=== PATIENT | male | born 1995 | race Caucasian/White ===

== ENCOUNTER 2017-02-02 11:34 | Day surgery (SDC) | payer BC ==
[~2017-02-02] VITALS: Ht 182.9 cm; Wt 71.4 kg
--- NOTE | ~2017-02-02 | ER ---
PATIENT'S NAME: ASMITA [facility] AGE: 21 Y [address] ROOM: [place] [address] [place] [facility] [facility] [place]: 02/02/2017 ER/Outpatient Report DISCHARGE DATE: FAMILY PHYSICIAN: PHYSICIAN, UNKNOWN ATTENDING PHYSICIAN: Nirmal Orta Time of Arrival: 1134 hours. Time of Evaluation/Seen: 1140 hours. IDENTIFICATION: A 21-year-old male. CHIEF COMPLAINT: Abdominal pain. HISTORY OF PRESENT ILLNESS: The patient states around 8:00 a.m. he developed mid abdominal pain. No radiation, associated with nausea and vomiting. No diarrhea. No constipation, and he had a normal bowel movement this morning. No blood in his stools. No dark, tarry, or black stools. No fever or chills. He has had a history of intermittent abdominal pain in the past with negative workup, but has never had any imaging, last flare was 2 years ago. He had a severe episode of constipation in 2nd grade and then again in 9th grade was troubled with intermittent abdominal pain. ALLERGIES: NO KNOWN DRUG ALLERGIES. CURRENT MEDICATIONS: None. MEDICAL PROBLEMS: None. PAST SURGICAL HISTORY: No prior surgeries. He was hospitalized for severe constipation as a child, but no other hospitalizations. SOCIAL HISTORY: The patient lives here in [place]. 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 He does have a significant other. Tobacco use, denies. Alcohol use, denies. Drug use, denies. REVIEW OF SYSTEMS: All systems were reviewed and negative other than what is noted in the HPI. PATIENT'S NAME: MATTEOZEESHAN [facility] AGE: 21 Y [address] ROOM: [place] [address] [place] [facility] [place] DATE: 02/02/2017 ER/Outpatient Report DISCHARGE DATE: FAMILY PHYSICIAN: PHYSICIAN, UNKNOWN ATTENDING PHYSICIAN: Nirmal Orta PHYSICAL EXAMINATION: VITAL SIGNS: Weight 70.5 kg. Blood pressure 154/105, pulse 64, respiratory rate is 20, temperature 96.0, and sats 96%. Recheck blood pressure is 131/90. GENERAL: A 21-year-old male in obvious distress with 10/10 pain and nausea and vomiting. HEENT: Head; normocephalic and atraumatic. Ears; TMs not visualized. Eyes; pupils equal and reactive to light and accommodation. Extraocular movements intact. Nose; mucosa pink. No lesions or drainage. Mouth; no lesions. Pharynx, benign. NECK: Supple. No lymphadenopathy. No nuchal rigidity. LUNGS: Clear to auscultation. HEART: Regular rate and rhythm. ABDOMEN: Bowel sounds present. Soft, nondistended, and tender to palpation in the mid abdomen with some voluntary guarding. No rebound. The patient seems to be more tender in the right abdomen, but when you ask him where it hurts, he points more to just above his umbilicus. EMERGENCY DEPARTMENT COURSE: An IV was initiated. Zofran 4 mg was given, and fentanyl 50 mcg, with no improvement. Both were repeated. He continued to have significant nausea. Phenergan 50 mg IM was given with some improvement with the pain level down to 5. UA is negative. Sodium 141, potassium 3.9, chloride 107, CO2 of 28, BUN 17, creatinine 1.1, and blood sugar 110. Liver enzymes normal. Amylase 49, lipase 64. Hemoglobin 19.1, hematocrit 53.0, platelets 261,000, and white count 12.4 with 80% neutrophils. CT scan of the abdomen and pelvis with IV contrast, acute uncomplicated appendicitis per Dr. Oliveira, radiologist. IMPRESSION: Acute appendicitis. PLAN: Dr. Orta was consulted from General Surgery and evaluated the patient in the emergency room. Plan for a laparoscopic appendectomy. WILLIAM RAMOS MD CAR/modl /[id number] d: 02/02/[id number] t: 02/10/172040, OUTPATIENT REPORT
--- NOTE | ~2017-02-02 | OR ---
PATIENT'S NAME: CARMEN [facility] AGE: 21 Y [address] ROOM: [address] [address] [place]: [facility] [place] ADMIT DATE: 02/02/2017 OR/Procedure Report DISCHARGE DATE: FAMILY PHYSICIAN: PHYSICIAN, UNKNOWN ATTENDING PHYSICIAN: Nirmal Orta SURGEON: Nirmal Orta MD RADIOGRAPHY TECHNICIAN: Trice Parks PA-C. DATE OF PROCEDURE: 02/02/2017 PREOPERATIVE DIAGNOSIS: Acute appendicitis. POSTOPERATIVE DIAGNOSIS: Acute appendicitis. PROCEDURE: Laparoscopic appendectomy. FINDINGS: The patient had acutely inflamed appendix. No perforation was present. ESTIMATED BLOOD LOSS: Less than 20 mL. COMPLICATIONS: None. INDICATIONS: The patient is a 21-year-old male, who presented with abdominal pain. He had CT evidence of appendicitis. We discussed appendectomy with the patient. The risks, benefits, and alternatives, and he elected to proceed. DESCRIPTION OF PROCEDURE: The patient was taken to the operating room. He was placed supine, given IV sedation, subsequently intubated. Abdomen was prepped with ChloraPrep and sterilely draped. Local anesthetic was infiltrated just inferior to the umbilicus. A transverse incision was created. The abdomen was elevated. Veress needle was inserted. Pneumoperitoneum was induced. Following this, a 5 mm trocar was inserted followed by insertion of the camera. There was no injury from initial trocar placement. Two more trocars were positioned, a 5 mm and a 12 mm trocars, these were both inserted in the left lower quadrant. A skin overlying the peritoneum was first anesthetized prior to making the incisions. Both these trocars were inserted under direct visualization. The appendix was identified in the right lower quadrant. It was consistent with appendicitis. It was grasped and elevated. A window was created at the base of the appendix. Once a window was created, a laparoscopic stapler was placed across the base of the appendix and fired. A second staple load was placed across the mesoappendix and fired. Appendix was then placed in an EndoCatch bag and brought out through the left lower quadrant port site. The operative field was inspected and it appeared hemostatic. The staple lines appeared intact. The area was copiously irrigated. Fluid was removed. The pneumoperitoneum was then PATIENT'S NAME: ASMITA [facility] AGE: 21 Y [address] ROOM: [address] [address] LOCATION: [facility] [place] ADMIT DATE: 02/02/2017 OR/Procedure Report DISCHARGE DATE: FAMILY PHYSICIAN: PHYSICIAN, UNKNOWN ATTENDING PHYSICIAN: Nirmal Orta. The trocars were removed. The trocar sites appeared hemostatic. The fascia of the 12 mm port site was approximated with 0 Vicryl suture followed by skin closure of all 3 port sites with 4-0 Monocryl suture. Steri- Strips and sterile dressings were placed. The patient was extubated and sent to recovery in good condition. Trice Parks was necessary for necessary retraction and visualization throughout the entire case. MD MIKAELA MCMAHON/timmy /[id number] P d: 02/02/17 2244 t: 02/11/17 1334, OPERATIVE SUMMARY
--- NOTE | ~2017-02-02 | HP ---
PATIENT'S NAME: ASMITA [facility] AGE: 21 Y [address] ROOM: [place] [address] [place] [facility] [place]: 02/02/2017 History & Physical DISCHARGE DATE: FAMILY PHYSICIAN: PHYSICIAN, UNKNOWN ATTENDING PHYSICIAN: Nirmal Orta DATE OF SERVICE: CHIEF COMPLAINT: Abdominal pain. HISTORY OF PRESENT ILLNESS: The patient is a 21-year-old male who said at 8 a.m. this morning he began having abdominal pain, this got progressively worse. He said in high school he had some history of having intermittent abdominal pain without any clear etiology. He said normally after having a bowel movement his pain will go away. He had a normal bowel movement this morning, the pain persisted and then got progressively worse, he then vomited. He says now when he moves he feels nauseated because the pain gets severe. Never had pain as severe as this in the past. No history of Crohn disease or ulcerative colitis. He was seen in the emergency room where he was evaluated and was found to have a leukocytosis with significant abdominal pain. Because of this, a CT scan was performed, the CT revealed evidence of appendicitis. He has also had no fevers or chills. CURRENT MEDICATIONS: None. ALLERGIES: NONE. PREVIOUS SURGERIES: None. SOCIAL HISTORY: He does not smoke. He does drink alcohol on occasion. He is not . FAMILY HISTORY: He had a grandmother with cancer, does not know what type. No other family history of cancer. Denies heart disease or diabetes. REVIEW OF SYSTEMS: Denies headache or vision changes. He has no chest pain or shortness of breath. He has had no melena or hematochezia. No hematuria or dysuria. No diabetes. No hyperthyroidism or hypothyroidism. Further review of systems is PATIENT'S NAME: MATTEOZEESHAN [facility] AGE: 21 Y [address] ROOM: [place] [address] [place] [facility] [place]: 02/02/2017 History & Physical DISCHARGE DATE: FAMILY PHYSICIAN: PHYSICIAN, UNKNOWN ATTENDING PHYSICIAN: Nirmal Orta negative. PHYSICAL EXAMINATION: GENERAL: He is an uncomfortable-appearing 21-year-old male. HEENT: Head is normocephalic, atraumatic. Eyes are anicteric. NECK: Without lymphadenopathy. HEART: Regular rate and rhythm. LUNGS: Clear to auscultation bilaterally. ABDOMEN: Diffusely tender, worse in the right lower quadrant. He demonstrates voluntary guarding. EXTREMITIES: Warm. No edema. NEUROLOGICAL: Gross motor is intact. ASSESSMENT: CT evidence of acute appendicitis. PLAN: Discussed the findings with Manan. We discussed surgery, also discussed antibiotic treatment, but ultimately recommended surgery. Discussed risks of surgery, which include but are not limited to, bleeding, infection, staple line leak, abscess formation, injury to other viscera. He understands the risks of surgery and would like to proceed. MD MIKAELA MCMAHON/timmy /[id number] D: [id number] T: [id number] HISTORY & PHYSICAL
[2017-02-02 11:57] LABS: BASOPHIL % 0.3 %; EOSINOPHIL # 0.1 K/uL (0.0-0.5); EOSINOPHIL % 0.4 %; HEMOGLOBIN 19.1 g/dL (12.0-17.0); IMMATURE GRANULOCYTE % 0.3 %; LYMPHOCYTE # 1.6 K/uL (0.8-4.0); LYMPHOCYTE % 12.7 %; MCH 32.4 pg (27.0-34.0); MCV 89.8 fl (83.0-98.0); MONOCYTE # 0.7 K/uL (0.0-1.0); MONOCYTE % 5.6 %; NEUTROPHIL % 80.7 %; NRBC % 0 /100WBC (0-0.00); PLATELET COUNT 261 K/uL (150-450); RDW-CV 11.7 % (11.9-14.6); WBC 12.4 K/uL (4.0-11.0)
[2017-02-02 12:31] LABS: ALBUMIN 4.2 gm/dL (3.5-5.0); ALK PHOS 68 IU/L (33-138); ALT 20 IU/L (12-78); ANION GAP 9.9 (10.0-19.0); AST 11 IU/L (10-40); BLOOD UREA NITROGEN 17 mg/dL (6-24); CALCIUM 8.9 mg/dL (8.5-10.5); CHLORIDE 107 mMol/L (96-110); CO2 28 mMol/L (22-32); CREATININE 1.1 mg/dL (0.6-1.3); POTASSIUM 3.9 mMol/L (3.7-5.1); SODIUM 141 mMol/L (135-145); TOTAL BILIRUBIN 0.6 mg/dL (0.0-1.5); TOTAL PROTEIN 7.4 g/dL (6.0-8.4)
[2017-02-02 13:19] LABS: BILIRUBIN URINE NEGATIVE (NEGATIVE); BLOOD URINE NEGATIVE /UL (NEGATIVE); COLOR URINE YELLOW (YELLOW); GLUCOSE URINE NEGATIVE (NEGATIVE); KETONE URINE NEGATIVE (NEGATIVE); LEUKOCYTES URINE NEGATIVE /UL (NEGATIVE); NITRITE URINE NEGATIVE (NEGATIVE); PROTEIN URINE NEGATIVE (NEGATIVE); SPEC GRAVITY URINE 1.015 (1.003-1.035); TURBIDITY URINE CLEAR (CLEAR); UROBILINOGEN URINE NORMAL (NORMAL)
--- NOTE | 2017-02-02 16:00 | NUR ---
500ML OF IV FLUIDS INFUSED PRIOR TO OR.
[2017-02-03 04:10] LABS: BASOPHIL % 0.1 %; HEMATOCRIT 45.3 % (37.0-53.0); HEMOGLOBIN 16.2 g/dL (12.0-17.0); IMMATURE GRANULOCYTE % 0.3 %; LYMPHOCYTE # 1.2 K/uL (0.8-4.0); LYMPHOCYTE % 11.2 %; MCH 32.7 pg (27.0-34.0); MCHC 35.8 gm/dL (32.0-36.5); MCV 91.3 fl (83.0-98.0); MONOCYTE # 1.1 K/uL (0.0-1.0); MPV 10.6 fl (9.4-12.4); NEUTROPHIL # (ANC) 8.5 K/uL (1.4-9.0); NEUTROPHIL % 78.4 %; NRBC % 0 /100WBC (0-0.00); PLATELET COUNT 220 K/uL (150-450); RBC 4.96 M/uL (4.00-6.00); RDW-CV 11.7 % (11.9-14.6); WBC 10.8 K/uL (4.0-11.0)
--- NOTE | 2017-02-03 05:02 | NUR ---
Pt. alert and oriented. RA. VSS. Arrival to floor at shift change from surgery for appy. 3 lap sites - clean, dry, intact. IV in R) arm. Saline locked for pt. tolerating fluids. Has had 1 episode of nausea since saline locking - gave PRN zofran, gave daniel mist, and heating pack - relief noted. Ambulated in sanders x2. Voiding well. Ibuprofren given x1 at beginning otherwise no pain meds. Possible d/c today. Cooperative with cares.
[2017-02-03] MEDS ORDERED: MOTRIN600 MG PO (09:25)
[2017-02-03] MEDS ORDERED: NORCO 5-325 TA1 EACH PO (09:26)
--- NOTE | 2017-02-03 10:19 | NUR ---
1020 met with patient and girlfriend at bedside today. Introduced myself and the role with the CM department. Patient states he has no concerns with discharging today. He states he has plenty of support to help him if he needs help at discharge. He states he sees Dr. Gigi Sanchez in [place] as his PCP. No other needs.
--- NOTE | 2017-02-03 10:24 | NUR ---
DISCHARGE: D: ORDERS RECEIVED FOR THE PATIENT TO BE DISCHARGED TO HOME TODAY WITH FAMILY. I: DISMISSAL INSTRUCTIONS WERE PREPARED AND REVIEWED WITH THE PATIENT AND FAMILY VIRTUALLY. THE FOLLOWING INFORMATION WAS DISCUSSED INCLUDING [employer] TEACHING SHEETS PROVIDED: DISCHARGE INSTRUCTIONS FOR LAP APPENDECTOMY, NORCO, MORTIN AND PREVENTING DVT. REVIEWED SIDE EFFECTS OF NEW PRESCRIPTIONS AND DRESSING/WOUND CARE. R: THE PATIENT VERBALIZED UNDERSTANDING OF THE DISMISSAL EDUCATION AT THE TIME OF TEACHING WITH NO FURTHER QUESTIONS. P: THE ABOVE INFORMATION WAS SHARED WITH THE PRIMARY NURSE AND THE CHARGE NURSE THAT THE PATIENT'S DISMISSAL EDUCATION WAS COMPLETED. THE PATIENT IS READY FOR DISCHARGE TO THE FRONT DOOR BY NURSING STAFF. THE PATIENT AMBULATED TO THE FRONT DOOR WITH ZULLY PAREKH.
--- NOTE | 2017-02-03 11:01 | NUR ---
Significant Event: Pt states pain is tolerable. Stab sites to lower abd d/i. Up ad bowen. Tolerating regular food. Dc to home at 1030 with the girlfriend. All pt belongings sent with him. Follow up:
== END 2017-02-03 10:30 | disposition disaster alternative care site (69) ==
LOC: GMED 11:34 → GMSU 15:20 → GSDC 15:20 → GMSU 18:49 → GSDC 02-03 10:30
PROVIDERS: Family Medicine; Surgery
PROC: 0DTJ4ZZ Resection of Appendix, Percutaneous Endoscopic Approach (ICD-10-PCS; principal; 2017-02-02)
DX: K35.80 Unspecified acute appendicitis (principal)
CPT/HCPCS: J1335; J2405; J2550; J3010; J7030; Q9967